=== PATIENT | female | born 1990 | race Caucasian/White ===

== ENCOUNTER 2017-01-13 20:05 | Emergency (ER) | payer MEDICAID ==
--- NOTE | 2017-01-25 14:42 | ER ---
ADMIT: 01/13/2017 RM/LOC: ER [facility] MR#: [id number] [id number] [place], [place] [id number] SRAVANTHI AMES [address] [facility] [place] [address] Emergency Room Report SEX: F AGE: 27 : 1990 DATE: 01/13/2017 CHIEF COMPLAINT: Paresthesia to the right side of her body. HISTORY OF PRESENT ILLNESS: This is a 27-year-old, who said she had a slight headache, so she took some Aleve or ibuprofen just prior to picking up her kids from the school. She said while driving there, she kind of felt like her right arm felt numb and tingly. Then it was her right leg. She drove here from [place]. Still is having some sensations off and on. She was worried about having any kind of stroke-like symptoms, so presented to the ER. Her neuro exam is completely negative. Due to her saying she has been having intermittent paresthesia, I did do a CT of her head, which was negative for any acute findings. She also complained of some cramping in her right calf, so I did an ultrasound, negative for DVT. I did suggest to her that she could take a baby aspirin daily, and follow up with her primary care physician next week. CLINICAL IMPRESSION: Transient paresthesia to the right leg and arm. BRUNO Snyder / Kurt Hernández MD / [facility] JOB #: [id number] CC: Kurt Hernández MD, Attending Physician UNKNOWN, Family Physician
== END 2017-01-13 22:25 | disposition home or self-care (01) ==
LOC: ER 20:05
DX: R20.2 Paresthesia of skin (principal); J45.909 Unspecified asthma, uncomplicated; G43.909 Migraine, unspecified, not intractable, without status migrainosus; Z79.51 Long term (current) use of inhaled steroids; Z79.899 Other long term (current) drug therapy